=== PATIENT | male | born 1945 | race Caucasian/White ===

== ENCOUNTER 2018-01-08 10:36 | Outpatient (CLI) | payer MEDICARE, OTHER ==
[2018-01-08 11:48] LABS: Mean Corpuscular HGB CONC 34.7 g/dL (32.0-36.0); Mean Corpuscular Volume 92.2 fl (80.0-94.0); Mean Platelet Volume 6.7 fL (7.4-10.4); Platelet Count 244 thou/uL (130-400); Red Blood Cell (RBC) Count 4.69 mill/uL (4.70-6.10); White Blood Cell (WBC) Count 7.2 thou/uL (4.8-10.8)
[2018-01-08 12:20] LABS: Anion Gap 14 mmol/L (10-20); BUN (Urea Nitrogen) 20 mg/dL (8.4-25.7); Calc. Creatinine Clearance 0 mL/min (70-130); Calcium 9.3 mg/dL (7.8-10.44); Carbon Dioxide 24 mmol/L (23-31); Chloride 104 mmol/L (98-107); Estimated GFR-MDRD 60; Glucose 93 mg/dL (83-110); Potassium 4.5 mmol/L (3.5-5.1); Sodium 137 mmol/L (136-145)
[2018-01-08 12:56] LABS: PTT 29.7 SEC (22.9-36.1); Prothrombin Time 12.8 SEC (12.0-14.7)
--- NOTE | 2018-03-05 17:47 | EKG ---
Test Reason : Blood Pressure : / mmHG Vent. Rate : 075 BPM Atrial Rate : 075 BPM P-R Int : 228 ms QRS Dur : 086 ms QT Int : 370 ms P-R-T Axes : 021 -09 029 degrees QTc Int : 413 ms Sinus rhythm with 1st degree A-V block Otherwise normal ECG No previous ECGs available Confirmed by JAN SUNG M.D. ([id number]) on 03/05/2018 5:46:45 PM Referred By: YVONNE Confirmed By:JAN SUNG M.D.
== END 2018-01-08 10:37 | disposition home or self-care (01) ==
LOC: LABBT 10:36
PROVIDERS: ATTEND Surgery
DX: Z01.818 Encounter for other preprocedural examination (principal); M48.061 Spinal stenosis, lumbar region without neurogenic claudication; M54.16 Radiculopathy, lumbar region
CPT/HCPCS: 80048; 85027; 85610; 85730; 93005; 93010

== ENCOUNTER 2018-01-14 07:16 | Day surgery (SDC) | payer MEDICARE, OTHER ==
[2018-01-14] MEDS ORDERED: CEFAZOLIN/Water 2 GM/20 ML SYRINGE ONE (08:33)
[2018-01-14] MEDS ORDERED: Bacitracin Zinc Ointment 30 gm TUBE ONE (09:28)
[2018-01-14] MEDS ORDERED: Thrombin 5000 UNITS/5 ML VIAL ONE ×2 (09:28→12:31)
[2018-01-14] MEDS ORDERED: Sodium Chloride 0.9% 10 ML ONE (09:28)
[2018-01-14] MEDS ORDERED: Fentanyl 100 MCG/2 ML VIAL ONE ×3 (10:17→14:28)
[2018-01-14] MEDS ORDERED: PHENYLEPHRINE-NS 100 MCG/ML 10 ML SYRINGE ONE ×2 (11:41→13:31)
[2018-01-14] MEDS ORDERED: Albuterol Sulfate HFA (OR ONLY) ONE (11:41)
[2018-01-14] MEDS ORDERED: Phenylephrine HCL 10 MG/ML VIAL ONE (11:44)
[2018-01-14] MEDS ORDERED: Meperidine HCl/PF 25 MG/ML VIAL SLOW IVP PRN (12:48)
[2018-01-14] MEDS ORDERED: Promethazine HCl 25 MG/ML VIAL IM PRN ×2 (12:48→13:57)
[2018-01-14] MEDS ORDERED: Ondansetron HCl/PF 4 MG/2 ML Vial IVP PRN (12:48)
[2018-01-14] MEDS ORDERED: HYDROmorphone 2 MG/ML VIAL SLOW IVP PRN (12:48)
[2018-01-14] MEDS ORDERED: Promethazine HCl 25 MG/ML VIAL SLOW IVP PRN (12:48)
[2018-01-14] MEDS ORDERED: Morphine Sulfate 2 MG/ML SYRINGE SLOW IVP PRN (12:48)
[2018-01-14] MEDS ORDERED: PROPOFOL 200 MG/20 ML VIAL ONE (13:31)
[2018-01-14] MEDS ORDERED: Dexamethasone 20 MG/5 ML VIAL ONE (13:31)
[2018-01-14] MEDS ORDERED: PROVENTIL INHALER 6.7 G (200 INHALATIONS) ONE (13:31)
[2018-01-14] MEDS ORDERED: Metoclopramide HCl 10 MG/2 ML VIAL ONE (13:31)
[2018-01-14] MEDS ORDERED: Lidocaine 1% PF 5 ML VIAL ONE (13:31)
[2018-01-14] MEDS ORDERED: Glycopyrrolate 0.2 MG/ML 5 ML SYRINGE ONE (13:31)
[2018-01-14] MEDS ORDERED: ePHEDrine/0.9% NaCl/PF SYRINGE 50 mg/10 ml ONE (13:31)
[2018-01-14] MEDS ORDERED: Ondansetron HCl/PF 4 MG/2 ML Vial ONE (13:31)
[2018-01-14] MEDS ORDERED: Fleet Enema 133 ML BOT PR PRN (13:57)
[2018-01-14] MEDS ORDERED: tiZANidine HCl 4 MG TAB PO PRN (13:57)
[2018-01-14] MEDS ORDERED: traMADol HCl 50 MG TAB PO PRN (13:57)
[2018-01-14] MEDS ORDERED: Acetaminophen 325 MG TAB PO PRN (13:57)
[2018-01-14] MEDS ORDERED: Milk Of Magnesia 30 ML UDCUP PO PRN (13:57)
[2018-01-14] MEDS ORDERED: Mag-Al 1200 mg/1200 mg/30 ML UDCUP PO PRN (13:57)
[2018-01-14] MEDS ORDERED: Bisacodyl 10 MG SUPP PR PRN (13:57)
[2018-01-14] MEDS ORDERED: Acetaminophen/Codeine 30-300mg Tablet PO PRN (13:57)
--- NOTE | 2018-01-14 14:02 | OP ---
OR: 12 WOUND TYPE: Type 1 wound. SURGEON: Aquiles Gli M.D. CYBER OPS PLANNER: Wilfrido Kolb PA-C. PREPROCEDURE DIAGNOSES: Multilevel lumbar stenosis with disk extrusion with low back and bilateral l eg pain with lumbar spondylolisthesis. POSTPROCEDURE DIAGNOSES: Multilevel lumbar stenosis with disk extrusion with low back and bilateral leg pain with lumbar spondylolisthesis. PROCEDURES PERFORMED: 1. Left L2-L3 hemilaminotomy, foraminotomy, and diskectomy. 2. L3-L4, L4-L5 laminectomies, partial facetectomies and foraminotomies over the L3, L4, L5 nerve ro ots bilaterally. 3. Left L5-S1 hemilaminotomy, foraminotomy. 4. Use of operative microscope for microdissection. 5. In situ fusion with local bone autograft obtained from same incision and allograft, L4-L5 to iain t spondylolisthesis. 6. Use of operative microscope for microdissection. DESCRIPTION OF PROCEDURE: After informed consent was obtained from the patient, the patient brought to OR 12. Proper patient pause and identification was carried out. He was placed in excellent gener al endotracheal anesthesia and positioned prone on the OR table. All appropriate points were padded. We identified the L2, L3, L4, L5 and S1 dorsal spines. A linear marcia was made over this region. T his region was sterilely cleansed, prepared, and draped. Proper patient pause and identification was carried out. The wound was then opened with a combination of sharp, monopolar and blunt dissection, left L2-L3 segment was exposed. The L3, L4, L5, and left-sided L5-S1 segments were also exposed elsi ateral exposure at L3, L4, and L5. Localization film confirmed our area of interest and performed an L3, L4, L5 laminectomies, partial facetectomies, and foraminotomies. We then again performed a left L5-S1 hemilaminotomy, foraminotomy for decompression of the left S1 nerve root. There was osteophyt ic disk, but I do not think it was necessary to remove this as we obtained excellent decompression si mply with the foraminotomy. With use of the operative microscope, we worked left L2-L3 segment, iden tified multiple disk fragments compressing the traversing left L3 nerve root. Multiple fragments wer e removed. Copious irrigation occurred throughout as did maximizing hemostasis. The wound was then closed in anatomic layers. I was satisfied with our decompression. Vancomycin powder was used. The patient then emerged from anesthesia.
[2018-01-14] MEDS ORDERED: HYDROmorphone 0.5 MG/0.5 ML SYRINGE ONE (14:44)
[2018-01-14] MEDS ORDERED: Clindamycin/D5W 900 mg/50 ml Premix Bag ONE (15:03)
[2018-01-14] MEDS: Clindamycin/D5W 900 MG in Premix Bag 1 BAG IVPB SCH ×2 (16:32→21:18)
[2018-01-14] MEDS: CEFAZOLIN/Water 2 GM/20 ML SYRINGE SLOW IVP SCH (17:38)
[2018-01-14] MEDS: Sodium Chloride 0.9% 1,000 ML IV SCH (17:48)
[2018-01-14] MEDS: HYDROcodone/Acetaminophen 7.5/325 mg Tablet PO PRN (18:15)
[2018-01-14 19:00] VITALS: BMI 32.9
[2018-01-15] MEDS: CEFAZOLIN/Water 2 GM/20 ML SYRINGE SLOW IVP SCH (02:13)
[2018-01-15] MEDS: Sodium Chloride 0.9% 1,000 ML IV SCH (05:05)
[2018-01-15] MEDS: HYDROcodone/Acetaminophen 7.5/325 mg Tablet PO PRN (05:35)
--- NOTE | 2018-01-15 09:39 | PRG ---
DATE OF SERVICE: 01/15/2018 Mr. Pena is postoperative day 1 from a left L2-L3 hemilaminotomy, foraminotomy, and diskectomy, L3-5 laminectomy, L4-5 in situ fusion and left L5-S1 hemilaminotomy, foraminotomy for decompression. He is doing very well with no leg pain. He is ambulating. His is very pleased with how he has don e. He is down getting his ultrasound today as he has a history of DVT. We will follow up on this. Should he be stable he may be dismissed.
--- NOTE | 2018-01-15 10:10 | ULT ---
BILATERAL LOWER EXTREMITY VENOUS DOPPLER ULTRASOUND: DATE: 01/15/18. COMPARISON: None. HISTORY: Prior history of DVT, recent surgery, postoperative patient undergoing evaluation for deep venous thr ombosis. TECHNIQUE: Multiplanar, epperson scale, sonographic imaging of the venous structures of bilateral lower extremities obtained with color flow and spectral analysis. FINDINGS: Bilateral common femoral veins, greater saphenous vein, profunda femoral veins, femoral veins, poplit eal veins, and posterior tibial veins are patent. Normal blood flow, augmentation, and compression n oted bilaterally. No evidence for deep venous thrombosis of either lower extremity. IMPRESSION: No evidence for deep venous thrombosis of either lower extremity. POS: [facility]
[2018-01-15 12:37] VITALS: BP 159/76; TEMP 97.4
== END 2018-01-15 13:50 | disposition home or self-care (01) ==
LOC: SDC 07:16 → SURG A 13:58 → UNDOADMOB 13:58 → SDC 01-15 13:50 → UNDODISOB 01-15 13:50
PROVIDERS: ATTEND Surgery
PROC: 01NB0ZZ Release Lumbar Nerve, Open Approach (ICD-10-PCS; principal; 2018-01-14)
PROC: 0SB20ZZ Excision of Lumbar Vertebral Disc, Open Approach (ICD-10-PCS; 2018-01-14)
PROC: 00NY0ZZ Release Lumbar Spinal Cord, Open Approach (ICD-10-PCS; 2018-01-14)
PROC: 0SG0071 Fusion of Lumbar Vertebral Joint with Autologous Tissue Substitute, Posterior Approach, Posterior Column, Open Approach (ICD-10-PCS; 2018-01-14)
DX: M48.061 Spinal stenosis, lumbar region without neurogenic claudication (principal); M51.26 Other intervertebral disc displacement, lumbar region; M43.16 Spondylolisthesis, lumbar region; Z79.899 Other long term (current) drug therapy
CPT/HCPCS: 76001; 93970; 96365; 96374; 96375; A4216; J0131; J1100; J1170; J2001; J2270; J2370; J2405; J2704; J2765; J3010; J3370; J3490

== ENCOUNTER 2022-10-15 13:03 | Outpatient (CLI) | payer MEDICARE, OTHER ==
[2022-10-15 14:31] LABS: Hemoglobin 14.2 g/dL (13.5-17.5); Mean Corpuscular HGB CONC 33.2 g/dL (32.0-36.0); Mean Corpuscular Hemoglobin 30.8 pg (27.0-33.0); Mean Corpuscular Volume 92.8 fl (81.2-95.1); Platelet Count 257 10x3/uL (150-450); RBC Distribution Width 15.1 % (11.5-14.5); Red Blood Cell (RBC) Count 4.61 10x6/uL (4.32-5.72); White Blood Cell (WBC) Count 14.6 10x3/uL (3.5-10.5)
[2022-10-15 14:39] LABS: INR-International Normal Ratio 0.9; PTT 26.5 sec (22.0-33.0); Prothrombin Time 10.2 sec (9.5-12.1)
[2022-10-15 14:42] LABS: Anion Gap 16 mmol/L (10-20); BUN (Urea Nitrogen) 24 mg/dL (8.4-25.7); Calc. Creatinine Clearance 0 mL/min (70-130); Calcium 9.8 mg/dL (7.8-10.44); Carbon Dioxide 25 mmol/L (23-31); Chloride 104 mmol/L (98-107); Estimated GFR 62; Glucose 77 mg/dL (83-110); Potassium 3.7 mmol/L (3.5-5.1); Sodium 141 mmol/L (136-145)
== END 2022-10-15 13:04 | disposition home or self-care (01) ==
LOC: LABBT 13:03
PROVIDERS: ATTEND Surgery
DX: Z01.812 Encounter for preprocedural laboratory examination (principal); M48.062 Spinal stenosis, lumbar region with neurogenic claudication; M43.16 Spondylolisthesis, lumbar region
CPT/HCPCS: 80048; 85027; 85610; 85730; 93005; 93010